=== PATIENT | female | born 1985 | race Hispanic/Latino ===

== ENCOUNTER 2024-06-05 18:20 | Emergency (ER) | payer SELFPAY ==
[~2024-06-05] VITALS: Ht 157.5 cm; Wt 66.2 kg
--- NOTE | 2024-06-05 19:47 | ERN ---
General Chief Complaint: Cough Stated Complaint: WEAKNESS, FLU LIKE SYMPTOMS Time Seen by MD: 18:21 Time Seen by Midlevel: 18:21 Source: patient History of Present Illness Initial Comments 39-year-old female who presents to the emergency department due to a cough onset yesterday. She reports congestion, headache, nausea, vomiting, fever, body aches but denies any chest pain, abdominal pain, difficulty breathing or further associated symptoms. Reports family members have been having similar symptoms. Denies significant past medical history. Allergies: Coded Allergies: No Known Allergies (Unverified Allergy, Unknown, 06/05/24) Home Meds Active Scripts Ondansetron (Ondansetron Odt) 4 Mg Tab.rapdis, 1 TAB PO TID PRN for nausea/vomiting for 3 Days, #9 TAB 0 Refills Prov:JAYSHREE VALENZUELA 06/05/24 Loratadine (Loratadine) 10 Mg Tablet, 1 TAB PO DAILY for allergy symptoms for 7 Days, #7 TAB 0 Refills Prov:JAYSHREE VALENZUELA 06/05/24 D-Methorphan Hb/P-Epd HCl/Bpm (Bromfed Dm Cough Syrup) 2 Mg-30 Mg-10 Mg/5 Ml Syrup, 10 ML PO [id number] for 5 Days, #200 ML Prov:JAYSHREE VALENZUELA 06/05/24 Past Medical History Past Medical History: No Pertinent History Past Surgical History: None Female( History) LMP: May 21, 2024 ROS Dictation Constitutional: Positive for generalized body aches, fever Negative for chills, and weight loss Eyes: Negative for injury, pain,redness, and discharge ENT: Positive for congestion Negative for injury,pain or swelling Cardiovascular: Negative for chest pain, palpitations, and edema Respiratory: Positive for cough Negative for shortness of breath, and wheezing, Abdomen/GI: Positive for nausea, vomiting Negative for abdominal pain, diarrhea, and constipation Back: Negative for injury and pain : Negative for painful urination, bleeding or discharge MS/Extremity: Negative for injury and deformity Skin: Negative for rash, and discoloration Neuro: Positive for headache Negative for numbness, tingling, and seizure Psych: Negative for suicide ideation, homicidal ideation, and hallucinations Physical Exam Physical Exam Dictation General: awake, alert, no acute distress Head/Face: Normocephalic, atraumatic Eyes: PERRL, EOMI, normal conjunctiva ENT: oral cavity clear, oral mucosa moist Neck: Supple, normal range of motion Cardiovascular: RRR, normal S1/S2 Respiratory: CTAB, no respiratory distress, no rales or wheezes Abdomen: Soft, non-tender, non-distended, no guarding or rebound. Skin: Warm, dry, normal turgor, no rash MS/Extremity: Pulses equal, no cyanosis, neurovascular intact, FROM Neuro: COAx4, GCS 15, no neurological deficits, normal gait Psych: Normal behavior, mood, and affect normal Results Laboratory and Microbiology Lab and Micro Result Laboratory Tests Test 06/05/24 19:26 06/05/24 19:29 Influenza Type A Antigen Negative For Type A Influenza Type B Antigen Negative For Type B SARS-CoV-2 Antigen (Rapid) PRESUMPTIVE NEGATIVE Group A Streptococcus Rapid negative (NEGATIVE) Urine Color YELLOW (YELLOW) Urine Appearance CLEAR (CLEAR) Urine pH 6.0 (5.0-8.0) Urine Specific [place] 1.034 (1.001-1.031) Urine Protein 50 mg/dL (NEGATIVE) H Urine Glucose (UA) NEGATIVE mg/dL (NEGATIVE) Urine Ketones 150 mg/dL (NEGATIVE) H Urine Occult Blood MODERATE (NEGATIVE) H Urine Nitrate NEGATIVE (NEGATIVE) Urine Bilirubin NEGATIVE mg/dL (NEGATIVE) Urine Urobilinogen 0.2 mg/dL (0.2-1.0) Urine Leukocyte Esterase NEGATIVE [place]/uL Urine RBC 11-25 /HPF (0-1) H Urine WBC 2-5 /HPF (0-1) H Urine Squamous Epithelial Cells FEW /HPF (0-2) Urine Bacteria RARE /HPF (None Seen) Urine HCG, Qualitative NEGATIVE (NEGATIVE) Labs Reviewed?: Yes MDM MDM: Differential diagnosis: Viral illness, UTI, influenza Rationale: 39-year-old female who presents to the emergency department due to a cough onset yesterday. She reports congestion, headache, nausea, vomiting, fever, body aches but denies any chest pain, abdominal pain, difficulty breathing or further associated symptoms. Reports family members have been having similar symptoms. Denies significant past medical history. Per physical examination patient is in no acute distress, nonlabored breathing, abdomen is soft nontender. Patient received acetaminophen and Zofran in the ED. Influenza, SARs, strep negative. UA negative for urinary tract infection. Patient was educated on findings and diagnosis. Advised to follow up with PCP. Return to the emergency department if any worsening symptoms. Patient verbalized understanding. Patient stable for discharge. There are no social concerns with this patient. I independently interpreted the test that were performed, results were reviewed by me and considered findings on radiology if ordered. Medical management and examination interpretation discussions were had by me wi th other qualified healthcare professionals as indicated for the patient's care. ED Course Orders Procedure Category Date Status Time Covid19 (Sars Antigen LAB 06/05/24 Complete Rapid) 19:26 Rapid (Group A Strep) LAB 06/05/24 Complete 19:26 Influenza Type A & B, LAB 06/05/24 Complete Rapid 19:26 Acetaminophen 500mg PHA 06/05/24 Complete Tab (Tylenol 500mg T 20:00 Ondansetron Odt 4mg PHA 06/05/24 Complete Tab (Zofran 4mg Odt) 20:00 Urinalysis LAB 06/05/24 Complete W/Microscopic 19:47 ,Urine Test LAB 06/05/24 Complete 19:47 Current Medications Medications (Trade) Dose Ordered Sig/Stephanie Route PRN Reason Start Time Stop Time Status Last Admin Dose Admin Acetaminophen (TYLenol 500MG TAB) 1,000 mg ONCE ONCE PO 06/05/24 20:00 06/05/24 20:01 DC 06/05/24 21:13 Ondansetron HCl (zoFRAN 4MG ODT) 4 mg ONCE ONCE SL 06/05/24 20:00 06/05/24 20:01 DC 06/05/24 21:12 Vital Signs Date Time Temp Pulse Resp B/P (MAP) Pulse Ox O2 Delivery O2 Flow Rate FiO2 06/05/24 21:08 99.0 105 16 130/80 96 Room Air* 0 21 06/05/24 19:23 99.0 127 20 134/83 96 Room Air DX & DISP Disposition: Discharge Departure Impression: Primary Impression: Viral illness Condition: Stable Scripts Ondansetron (Ondansetron Odt) 4 Mg Tab.rapdis 1 TAB PO TID PRN for nausea/vomiting for 3 Days, #9 TAB 0 Refills Prov: JAYSHREE VALENZUELA 06/05/24 Loratadine (Loratadine) 10 Mg Tablet 1 TAB PO DAILY for allergy symptoms for 7 Days, #7 TAB 0 Refills Prov: JAYSHREE VALENZUELA 06/05/24 D-Methorphan Hb/P-Epd HCl/Bpm (Bromfed Dm Cough Syrup) 2 Mg-30 Mg-10 Mg/5 Ml Syrup 10 ML PO [id number] for 5 Days, #200 ML Prov: JAYSHREE VALENZUELA 06/05/24 Additional Instructions: Discharge home. Rest. Follow up with primary care DrPriscilla in 24 hours. Return to the ER for any acute changes or worsening symptoms. If any medications were prescribed take as directed. Okay to continue home medications unless otherwise discussed during your visit in the emergency room today. Patient was also advised to follow-up with primary care physician in 1 to 2 days for continued monitoring. I performed the substantive portion of the visit. I have reviewed and personally made and approve the management plan that is documented in the notes by myself or the ABHINAV. I acknowledge full responsibility for the patient's management plan. JAYSHREE VALENZUELA Jun 05, 2024 19:47
[2024-06-05 19:49] LABS: RAPID GROUP A STREP negative (NEGATIVE)
[2024-06-05 19:56] LABS: COVID19 (SARS ANTIGEN RAPID) PRESUMPTIVE NEGATIVE (NEGATIVE)
[2024-06-05 19:58] LABS: INFLUENZA TYPE A Negative For Type A (NEGATIVE); INFLUENZA TYPE B Negative For Type B (NEGATIVE)
[2024-06-05 20:46] LABS: APPEARANCE,URINE CLEAR (CLEAR); BILIRUBIN,URINE NEGATIVE (NEGATIVE); COLOR,URINE YELLOW (YELLOW); GLUCOSE, URINE (UA) NEGATIVE (NEGATIVE); KETONES,URINE 150 mg/dL (NEGATIVE); LEUKOCYTE ESTERASE ,URINE NEGATIVE Leu/uL (NEGATIVE); NITRATE,URINE NEGATIVE (NEGATIVE); OCCULT BLOOD,URINE MODERATE (NEGATIVE); PROTEIN,URINE 50 mg/dL (NEGATIVE); UROBILINOGEN,URINE 0.2 mg/dL (0.2-1.0)
[2024-06-05 20:47] LABS: HCG,QUALITATIVE URINE NEGATIVE (NEGATIVE)
[2024-06-05 20:52] LABS: BACTERIA,URINE RARE /HPF (None Seen); MUCUS,URINE MOD LPF (None Seen); SQUAMOUS EPITHELIAL CELL,UR FEW /HPF (0-2)
[2024-06-05 21:08] VITALS: BP 130/80; PULSE 105; RESP 16; TEMP 99; O2SAT 96
[2024-06-05] MEDS: ondanSETRON ODT 4MG TAB SL ONE (21:12)
[2024-06-05] MEDS: acetaMINOPHEN 500 MG TABLET PO ONE (21:13)
[2024-06-05] MEDS ORDERED: BROM118S48 PO (21:15)
[2024-06-05] MEDS ORDERED: LORA10TA7 PO (21:15)
[2024-06-05] MEDS ORDERED: ONDA-243 PO (21:15)
--- NOTE | 2024-06-05 21:36 | NUR ---
UNABLE TO DEPART DUE TO REWG PROCESS
== END 2024-06-05 21:32 | disposition home or self-care (01) ==
LOC: EDH 18:20
DX: B34.9 Viral infection, unspecified (principal); Z20.822 Contact with and (suspected) exposure to COVID-19
CPT/HCPCS: 81001; 81025; 87426; 87804; 87880; 99283